=== PATIENT | female | born 1965 | race African-American/Black ===

== ENCOUNTER 2022-07-29 12:49 | Emergency (ER) | payer MEDICAID ==
[~2022-07-29] VITALS: Ht 167.6 cm; Wt 65.9 kg
[2022-07-29] MEDS ORDERED: QUET200T PO (13:05)
[2022-07-29 17:28] VITALS: BP 96/60
[2022-07-29] MEDS ORDERED: GABA-1181 PO (17:44)
[2022-07-29] MEDS ORDERED: NAPR-1025 PO (17:44)
== END 2022-07-29 18:39 | disposition home or self-care (01) ==
LOC: EMS 13:05
DX: S00.93XA Contusion of unspecified part of head, initial encounter (principal); S60.222A Contusion of left hand, initial encounter; F20.9 Schizophrenia, unspecified; Y04.8XXA Assault by other bodily force, initial encounter; Y93.89 Activity, other specified; Y92.89 Other specified places as the place of occurrence of the external cause; Y99.8 Other external cause status
CPT/HCPCS: 99283